=== PATIENT | male | born 1980 | race Caucasian/White ===

== ENCOUNTER 2022-12-29 08:21 | Outpatient (CLI) | payer OTHER, SELFPAY ==
[2022-12-29 20:51] LABS: Alanine Aminotransferase 49 U/L (6-50); Albumin Level 4.4 g/dL (3.5-5.1); Alkaline Phosphatase 64 U/L (38-126); Anion Gap 5 mmol/L (8-16); Aspartate Amino Transferase 57 U/L (17-59); Bilirubin,Total 0.8 mg/dL (0.2-1.3); Blood Urea Nitrogen 11 mg/dL (9-20); Calcium 8.8 mg/dL (8.4-10.2); Carbon Dioxide 32 mmol/L (22-30); Chloride 102 mmol/L (98-107); Cholesterol 210 mg/dL (0-200); Estimated Glomerular Filt Rate > 60; Glucose 66 mg/dL (65-110); HDL Direct 28 mg/dL; Sodium 139 mmol/L (137-145); Triglycerides 175 mg/dL (<150)
[2022-12-29 21:02] LABS: LDL Cholesterol Direct 138 mg/dL
== END 2022-12-29 08:22 | disposition home or self-care (01) ==
LOC: ANHGOSHLAB 08:22
PROVIDERS: PCP Family Medicine; Visit Provider Family Medicine
DX: K76.0 Fatty (change of) liver, not elsewhere classified (principal)
CPT/HCPCS: 36415; 80053; 80061

== ENCOUNTER 2024-07-28 09:14 | Day surgery (SDC) | payer OTHER, SELFPAY ==
[2024-07-28] VITALS (22 sets, daily range): BP systolic 112–180; BP diastolic 75–126; PULSE 66–83; RESP 16–26; TEMP 36.6–36.9; O2SAT 92–100
--- NOTE | 2024-07-28 10:59 | ED.GENADULT ---
HPI - General Adult General Chief complaint: Skin/Abscess/Foreign Body <Roseline Cunningham APRN - Last Filed: 07/28/24 22:07> Stated complaint: foreign body in throat <Roseline Cunningham APRN - Last Filed: 07/28/24 22:07> Time Seen by Provider: 07/28/24 09:28 <Roseline Cunningham APRN - Last Filed: 07/28/24 22:07> History of Present Illness HPI narrative: Patient is a 44-year-old male who presents to the ER with a food bolus. He reports he has the history of eosinophilic esophagitis and has had to have his esophagus dilated multiple times. Patient reports this current episode started about 2 days. He endorses vomiting approximately 10 minutes after he consumed anything by mouth. 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 He reports he knows he will probably have to get scoped but he came to the ER in hopes that we could give him something to relieve his condition and sent him home. Patient denies chest pain, shortness of breath, other side effects or symptoms of illness. <Roseline Cunningham APRN - Last Filed: 07/28/24 22:07> Related Data Allergies/adverse reactions: Allergies Allergy/AdvReac Type Severity Reaction Status Date / Time No Known Allergies Allergy Verified 07/28/24 12:00 <Roseline Cunningham APRN - Last Filed: 07/28/24 22:07> Review of Systems Review of Systems: All systems reviewed & are unremarkable except as noted in HPI and below <Roseline Cunningham APRN - Last Filed: 07/28/24 22:07> [facility] Past Medical History Medical History: Medical History Abnormal findings on esophagogastroduodenoscopy (EGD) 2019 egd ring Eosinophilic esophagitis egd path negative Normal esophagogastroduodenoscopy (EGD) Obesity (BMI 30-39.9) Obstructive sleep apnea syndrome Overweight <Roseline Cunningham APRN - Last Filed: 07/28/24 22:07> Surgical History Surgical History: Surgical History Hx of esophagogastroduodenoscopy egd: path neg for eosinophilic esophagitis <Roseline Cunningham APRN - Last Filed: 07/28/24 22:07> Family History Family History: Family History Father Family history of cardiovascular disease Other Family history of primary malignant neoplasm of liver Hypertension <Roseline Cunningham APRN - Last Filed: 07/28/24 22:07> Social History Social History: Social History Smoking status: Never smoker Alcohol intake: current <Roseline Cunningham APRN - Last Filed: 07/28/24 22:07> Exam Narrative: GENERAL: Well appearing, well-nourished, non-toxic, in no acute distress. HEAD: Normocephalic, atraumatic. NECK: Supple. No adenopathy, no masses. No swelling noted with palpation. RESPIRATORY: Airway patent, respirations nonlabored. Clear to auscultation bilaterally, no rales, rhonchi, wheezing. CARDIOVASCULAR: Regular rate and rhythm without murmurs, rubs, or gallops. Peripheral pulses 2+ and equal bilaterally. ABDOMINAL: Soft, nontender, nondistended, no hepatosplenomegaly. Normoactive BS. No pain with palpation. MUSCULOSKELETAL: Moves all extremities. Strength/ROM intact without gross deformities. SKIN: Warm, dry, normal color. No rashes. NEURO: A&O X3. Speech clear. Cranial nerves II-XII grossly intact. No ataxic movements. PSYCHIATRIC: Appropriate mood and affect. Normal interaction. <Roseline Cunningham APRN - Last Filed: 07/28/24 22:07> Course Vital Signs Vital signs: Vital Signs Pulse Rate 80 07/28/24 09:26 Respiratory Rate 16 07/28/24 09:26 Pulse Oximetry 100 07/28/24 09:26 Oxygen Delivery Room Air 07/28/24 09:26 Temperature 97.8 F 07/28/24 12:59 Pulse Rate 78 07/28/24 14:09 Respiratory Rate 23
[2024-07-28] MEDS: GLUCAGON FOR INJ 1 MG VIAL IM (11:44)
--- NOTE | 2024-07-28 12:02 | P.PNAN_ITS ---
Anes - Initial Pre Proc Eval Procedure: Operation Date: 07/28/24 12:30 Proposed Procedures p Esophagogastroduodenoscopy - Ronnell Orona MD Date/Time: 07/28/24 12:02 Surgeon: Ronnell Orona MD Pre Op Diagnosis: foreign body in throat Patient Data Age: 44 Gender: M Height: 1.75 m Weight: 104.5 kg Last Vital Signs Temp 36.6 C 07/28/24 09:33 Pulse 80 07/28/24 09:26 Resp 16 07/28/24 09:26 BP 157/95 H 07/28/24 09:28 Pulse Ox 100 07/28/24 09:26 O2 Del Method Room Air 07/28/24 09:26 Allergies Allergy/AdvReac Type Severity Reaction Status Date / Time No Known Allergies Allergy Verified 07/28/24 12:00 Home Medications Medication Instructions Recorded Confirmed Type No Home Medications 07/28/24 07/28/24 History Patient hx anesthesia problems: none Family hx anesthesia problems: none Results Review: All pre-operative results and documents have been reviewed as part of the pre- operative evaluation. [facility] Past Medical History Medical History (Updated 11/25/22 @ 15:48 by Barbara Rosado MD) Abnormal findings on esophagogastroduodenoscopy (EGD) 2019 egd ring Eosinophilic esophagitis egd path negative Normal esophagogastroduodenoscopy (EGD) Obesity (BMI 30-39.9) Obstructive sleep apnea syndrome Overweight Surgical History Surgical History (Updated 11/25/22 @ 15:48 by Barbara Rosado MD) Hx of esophagogastroduodenoscopy egd: path neg for eosinophilic esophagitis Family History Family History Father Family history of cardiovascular disease Other Family history of primary malignant neoplasm of liver Hypertension Social History Social History Smoking status: Never smoker Alcohol intake: current Anes - Eval Final PreProcedure Day of Procedure 07/28/24 12:02 Patient weight: obese Heart: regular rate and rhythm Lungs: clear to auscultation Airway: Mallampati scale class III Neurological: alert and oriented Last oral intake: >/= 8 hours ASA classification: III Emergent: no Anesthetic plan: proceed Anesthesia type and monitoring: general ETT and standard monitoring Results Review: All pre-operative results and documents have been reviewed as part of the pre- operative evaluation. Informed Consent: The patient's anesthetic plan and its attendant risks and benefits were discussed with the patient/family/POA. Questions were solicited and answers provided to the satisfaction of the patient/family/POA.
[2024-07-28] MEDS: LACTATED RINGERS 1,000 ML 150 ML IV CONT (12:05)
--- NOTE | 2024-07-28 12:25 | PM.IMHP ---
H&P: HPI History of Present Illness Date/Time: 07/28/24 12:25 Chief Complaint: The patient has an apparent diagnosis of eosinophilic esophagitis, however he has not been following any diet or pharmacologic treatment. He has constant dysphagia which he sometimes helps with swallowing liquids or simply vomiting. Five years ago, he had a food impaction requiring EGD and disimpaction. Currently, he was eating a hot dog a few hours ago and felt he could no longer has any fluid or even saliva. Review of Systems Review of Systems: All systems reviewed & are unremarkable except as noted in HPI and below PMFSH Past Medical History Medical History (Updated 07/28/24 @ 12:27 by Ronnell Orona MD) Abnormal findings on esophagogastroduodenoscopy (EGD) 2018 egd ring Eosinophilic esophagitis egd path negative Normal esophagogastroduodenoscopy (EGD) Obesity (BMI 30-39.9) Obstructive sleep apnea syndrome Overweight Surgical History Surgical History (Updated 11/25/22 @ 15:48 by Barbara Rosado MD) Hx of esophagogastroduodenoscopy egd: path neg for eosinophilic esophagitis Family History Family History Father Family history of cardiovascular disease Other Family history of primary malignant neoplasm of liver Hypertension Social History Social History Smoking status: Never smoker Alcohol intake: current Meds Home Medications and Allergies Home Medications Medication Instructions Recorded Confirmed Type No Home Medications 07/28/24 07/28/24 History Allergies Allergy/AdvReac Type Severity Reaction Status Date / Time No Known Allergies Allergy Verified 07/28/24 12:00 Vital Signs Vital Signs - 24 hr 07/28/24 09:26 07/28/24 09:28 07/28/24 09:33 Temperature 97.9 F Pulse Rate 80 Respiratory Rate 16 Blood Pressure 157/95 H Pulse Oximetry 100 Oxygen Delivery Room Air 07/28/24 12:05 07/28/24 09:30 07/28/24 09:45 Temperature 98.4 F Pulse Rate 66 Respiratory Rate 18 Blood Pressure 173/99 H 151/93 H 141/101 H Pulse Oximetry 98 95 96 Oxygen Delivery Room Air 07/28/24 10:01 07/28/24 10:31 07/28/24 11:01 Temperature Pulse Rate Respiratory Rate Blood Pressure 160/91 H 149/98 H 160/104 H Pulse Oximetry 96 96 96 Oxygen Delivery 07/28/24 11:15 07/28/24 11:16 07/28/24 11:30 Temperature Pulse Rate Respiratory Rate Blood Pressure 180/126 H Pulse Oximetry 94 98 96 Oxygen Delivery 07/28/24 10:00 07/28/24 11:00 Temperature 97.9 F 97.8 F Pulse Rate 78 82 Respiratory Rate 16 18 Blood Pressure 148/90 H 156/98 H Pulse Oximetry 98 98 Oxygen Delivery Assessment and Plan Assessment and plan (1) Dysphagia: Code(s): R13.10 - Dysphagia, unspecified Status: Acute Plan Patient with chronic recurrent dysphagia and current food impaction. We will proceed with EGD and disimpaction. We will also obtain esophageal biopsies to confirm eosinophilic esophagitis and treat accordingly. He might also need esophageal dilatation.
--- NOTE | 2024-07-28 12:54 | P.HP_ITS ---
H&P: HPI History of Present Illness Date/Time: 07/28/24 12:54 Chief Complaint: Food bolus impaction - similar episode in 2019 requiring EGD and disimpaction Review of Systems Review of Systems: All systems reviewed & are unremarkable except as noted in HPI and below PMFSH Past Medical History Medical History (Updated 07/28/24 @ 12:27 by Ronnell Orona MD) Abnormal findings on esophagogastroduodenoscopy (EGD) 2019 egd ring Eosinophilic esophagitis egd path negative Normal esophagogastroduodenoscopy (EGD) Obesity (BMI 30-39.9) Obstructive sleep apnea syndrome Overweight Surgical History Surgical History (Updated 11/25/22 @ 15:48 by Barbara Rosado MD) Hx of esophagogastroduodenoscopy egd: path neg for eosinophilic esophagitis Family History Family History Father Family history of cardiovascular disease Other Family history of primary malignant neoplasm of liver Hypertension Social History Social History Smoking status: Never smoker Alcohol intake: current Meds Home Medications and Allergies Home Medications Medication Instructions Recorded Confirmed Type omeprazole 40 mg capsule,delayed 40 mg PO BID #60 caps 07/28/24 Rx release Allergies Allergy/AdvReac Type Severity Reaction Status Date / Time No Known Allergies Allergy Verified 07/28/24 12:00 Vital Signs Vital Signs - 24 hr 07/28/24 09:26 07/28/24 09:28 07/28/24 09:33 Temperature 97.9 F Pulse Rate 80 Respiratory Rate 16 Blood Pressure 157/95 H Pulse Oximetry 100 Oxygen Delivery Room Air 07/28/24 12:05 07/28/24 09:30 07/28/24 09:45 Temperature 98.4 F Pulse Rate 66 Respiratory Rate 18 Blood Pressure 173/99 H 151/93 H 141/101 H Pulse Oximetry 98 95 96 Oxygen Delivery Room Air 07/28/24 10:01 07/28/24 10:31 07/28/24 11:01 Temperature Pulse Rate Respiratory Rate Blood Pressure 160/91 H 149/98 H 160/104 H Pulse Oximetry 96 96 96 Oxygen Delivery 07/28/24 11:15 07/28/24 11:16 07/28/24 11:30 Temperature Pulse Rate Respiratory Rate Blood Pressure 180/126 H Pulse Oximetry 94 98 96 Oxygen Delivery 07/28/24 10:00 07/28/24 11:00 Temperature 97.9 F 97.8 F Pulse Rate 78 82 Respiratory Rate 16 18 Blood Pressure 148/90 H 156/98 H Pulse Oximetry 98 98 Oxygen Delivery Assessment and Plan Assessment and plan (1) Dysphagia: Code(s): R13.10 - Dysphagia, unspecified Status: Acute Plan EGD and food bolus disimpaction
[2024-07-28] MEDS: ONDANSETRON INJ 4 MG/2 ML VIAL IV PUSH (13:33)
--- NOTE | 2024-07-28 14:29 | SUR.PHASEII ---
Pt states he is unable to take pills as ordered (Omeprazole). Dr. Orona notified states there is no liquid substitute and for pt to follow an elimination diet as ordered. Pt states understanding.
== END 2024-07-28 14:40 | disposition home or self-care (01) ==
LOC: ANHED 10:07 → ANHSURGERY 11:32 → ANHENDO 13:51
PROVIDERS: Emergency Provider Registered Nurse; Visit Provider Internal Medicine Gastroenterology
PROC: 0DJ08ZZ Inspection of Upper Intestinal Tract, Via Natural or Artificial Opening Endoscopic (ICD-10-PCS; CPT 43235; principal; 2024-07-28 12:30)
DX: T18.128A Food in esophagus causing other injury, initial encounter (principal); K20.90 Esophagitis, unspecified without bleeding; W44.F3XA Food entering into or through a natural orifice, initial encounter; G47.33 Obstructive sleep apnea (adult) (pediatric); E66.9 Obesity, unspecified; Z68.34 Body mass index [BMI] 34.0-34.9, adult
CPT/HCPCS: 43247; 43239; 88305; 96372; 99285; J0330; J1100; J1610; J2003; J2405; J2704; J7120